=== PATIENT | female | born 1985 | race Caucasian/White ===

== ENCOUNTER 2018-12-21 16:15 | Emergency (ER) | payer MEDICAID ==
[~2018-12-21] VITALS: Ht 167.6 cm; Wt 75.7 kg
[~2018-12-21 16:15] MED LIST: ONDA4TAB PO
[2018-12-21 16:23] VITALS: BP 125/88
--- NOTE | 2018-12-21 16:31 | NUR ---
PT AMB TO BED 2 WITH STEADY GAIT
--- NOTE | 2018-12-21 16:40 | NUR ---
C/O LOWER BACK PAIN 03/28 & SHARP STARTING TODAY WHILE SHE WAS GETTING DRESSED. PT STATES SHE HEARD A POP NOISE AND WAS NO LONGER ABLE TO MOVE. PT STATES SHE CANT SIT DUE TO PAIN. PT DENIES NUMBNESS/TINGLING TO EXTREMITIES, NEURO INTACT. NO OBVIOUS DEFORMITIES NOTED. BED IN LOW POSITION, SIDE RAIL UP X1. PT STATES SHE WOULD PREFER TO STAND AT THIS TIME.
[2018-12-21] MEDS ORDERED: NACL 0.9% 1,000 ML IV SCH (17:57)
[2018-12-21] MEDS ORDERED: KETOROLAC 15 MG/ML VIAL IVP ONE (18:05)
[2018-12-21] MEDS ORDERED: MORPHINE SULFATE 10 MG/ML VIAL IVP ONE (18:05)
[2018-12-21 18:38] LABS: BASOPHILS % (AUTO) 0.3 % (0.0-2.0); EOSINOPHILS % (AUTO) 0.4 % (0.0-4.0); HEMOGLOBIN 13.4 g/dL (12.0-16.0); LYMPHOCYTES # (AUTO) 2.6 K/uL (2.5-16.5); LYMPHOCYTES % (AUTO) 24.7 % (20.5-51.1); MEAN CORPUSCULAR HEMOGLOBIN 28 pg (27-31); MEAN CORPUSCULAR HGB CONC 33 g/dL (33-37); MEAN CORPUSCULAR VOLUME 84.9 fL (80-94); MONOCYTES # (AUTO) 0.6 K/uL (0.8-1.0); MONOCYTES % (AUTO) 5.7 % (1.7-9.3); NEUTROPHILS # (AUTO) 7.2 K/uL (1.8-7.7); NEUTROPHILS % (AUTO) 68.9 % (42.2-75.2); PLATELET COUNT (AUTO) 245 K/uL (140-450); RED BLOOD CELL COUNT(AUTO) 4.83 MIL/uL (4.20-5.40); WHITE BLOOD COUNT (AUTO) 10.5 K/uL (4.8-10.8)
[2018-12-21 19:04] LABS: ALBUMIN 4.4 g/dL (3.4-5.0); ANION GAP 13.8 (8-16); CARBON DIOXIDE 27.9 mmol/L (21-32); CREATININE 0.8 mg/dL (0.6-1.3); POTASSIUM 3.7 mmol/L (3.5-5.1); TOTAL BILIRUBIN 0.7 mg/dL (0.0-1.0)
--- NOTE | 2018-12-21 19:11 | NUR ---
RECEIVED REPORT FROM SHELLIE DELGADO. TRANSFER OF CARE AT THIS TIME.
--- NOTE | 2018-12-21 19:15 | NUR ---
PT IS LYING DOWN IN BED. REPORTS MEDICATION WAS EFFECTIVE AND DENIES PAIN AT THIS TIME. FLUIDS RUNNING. APPEARS GROGGY. PT STATES SHE HAS A RIDE HOME.
--- NOTE | 2018-12-21 19:40 | NUR ---
PT C/O N/V. EMESIS X 1, DARK BROWN. STATES SHE CAN TASTE BLOOD IN HER MOUTH. Addendum: 12/21/[address] [facility] DR[address] ESPINOSA NOTIFIED.
[2018-12-21] MEDS ORDERED: ONDANSETRON 4 MG/2 ML VIAL IVP ONE (20:00)
--- NOTE | 2018-12-21 20:20 | NUR ---
PT STATES PAIN IS STARTING TO COME BACK AND STILL FEELS SLIGHTLY NAUSEOUS. PT WILL RECEIVE RX WITH DISCHARGE.
[2018-12-21 20:30] VITALS: BP 116/65
--- NOTE | 2018-12-21 20:30 | NUR ---
Patient discharged with v/s stable. Written and verbal after care instructions given and explained. Patient alert, oriented and verbalized understanding of instructions. Ambulatory with steady gait. All questions addressed prior to discharge. ID band removed. Patient advised to follow up with PMD. Rx of Zofran, Ibuprofen and [place] given. Patient educated on indication of medication including possible reaction and side effects. Opportunity to ask questions provided and answered.
[2018-12-21 20:33] LABS: APPEARANCE,URINE CLEAR (CLEAR); BILIRUBIN,URINE 1+ (NEGATIVE); BLOOD, URINE NEGATIVE (NEGATIVE); COLOR,URINE YELLOW (YELLOW); LEUKOCYTE ESTERASE ,URINE NEGATIVE (NEGATIVE); NITRITE, URINE NEGATIVE (NEGATIVE); UGLUCOSE NEGATIVE (NEGATIVE)
== END 2018-12-21 20:30 | disposition home or self-care (01) ==
LOC: MED 16:15
DX: S39.012A Strain of muscle, fascia and tendon of lower back, initial encounter (principal); N83.202 Unspecified ovarian cyst, left side; Z79.899 Other long term (current) drug therapy; X58.XXXA Exposure to other specified factors, initial encounter; Y93.89 Activity, other specified; Y92.89 Other specified places as the place of occurrence of the external cause; Y99.8 Other external cause status
CPT/HCPCS: 36415; 74176; 80053; 81003; 83690; 85025; 96374; 96375; 99284; J1885; J2270; J2405; J7030